=== PATIENT | male | born 1965 | race Caucasian/White ===

== ENCOUNTER 2016-05-16 20:49 | Emergency (ER) | payer OTHER, BC ==
[~2016-05-16] VITALS: Ht 180.3 cm; Wt 127.0 kg
[2016-05-16] MEDS ORDERED: LIPITOR10 MG PO (22:07)
[2016-05-16] MEDS ORDERED: MOBIC7.5 MG PO (22:07)
[2016-05-16] MEDS ORDERED: ALLEGRA-D 12 H1 EACH PO (22:07)
== END 2016-05-16 21:05 ==
LOC: ER 20:49
DX: S50.811A Abrasion of right forearm, initial encounter (principal); F10.129 Alcohol abuse with intoxication, unspecified; I10 Essential (primary) hypertension; V89.2XXA Person injured in unspecified motor-vehicle accident, traffic, initial encounter